=== PATIENT | male | born 1940 | race Caucasian/White ===

== ENCOUNTER 2019-12-16 15:42 | Inpatient (IN) | payer MEDICARE ==
[~2019-12-16] VITALS: Ht 172.7 cm; Wt 72.1 kg
[~2019-12-16 15:42] MED LIST: FOLI0.4T2 PO; LEVO75TA5 PO; LOVA40TA2 PO; METO50TA82 PO; QUET25TA7 PO; SERT25TA3 PO; [UNRECOGNIZED DRUG - OTHER]
--- NOTE | 2019-12-16 16:26 | NUR ---
ROTARY SURFACE GRINDER: PT TO ROOM FROM LOBBY VIA WHEELCHAIR
[2019-12-16 16:40] LABS: BASOPHILS # (AUTO) 0.02 x10^3/uL (0-0.1); BASOPHILS % (AUTO) 0 % (0-1); EOSINOPHILS % (AUTO) 0 % (1-7); LYMPHOCYTES # (AUTO) 0.42 x10^3/uL (1-3.4); LYMPHOCYTES % (AUTO) 8 % (22-44); MD NO; MEAN CORPUSCULAR HGB CONC 33.5 g/dL (33.2-36.2); MEAN CORPUSCULAR VOLUME 95.3 fL (81-97); MONOCYTES # (AUTO) 0.33 x10^3/uL (0.2-0.8); MONOCYTES % (AUTO) 6 % (2-9); NEUTROPHILS % (AUTO) 86 % (42-75); PLATELET COUNT 159 x10^3/uL (130-400); RED BLOOD COUNT 4.25 x10^6/uL (4.38-5.82); RED CELL DISTRIBUTION WIDTH 14.1 % (9.4-14.8)
[2019-12-16 16:53] LABS: ALANINE AMINOTRANSFERASE 29 U/L (12-78); ALBUMIN 3.8 g/dL (3.4-5.0); ANION GAP 8 mmol/L (5-15); CALCIUM 8.7 mg/dL (8.5-10.1); CHLORIDE 109 mmol/L (98-107); CREATININE 1.19 mg/dL (0.7-1.3)
[2019-12-16 16:57] LABS: ALKALINE PHOSPHATASE 82 U/L (45-117); BILIRUBIN,TOTAL 0.7 mg/dL (0.2-1.0); TOTAL PROTEIN 7.7 g/dL (6.4-8.2); TROPONIN I 0.085 ng/mL (0.000-0.045)
--- NOTE | 2019-12-16 17:05 | NUR ---
PT TO RM FROM IMAGING AT THIS TIME. PT MUTE. HX OF [place]. PT WITH JERKY MOTIONS, PULLING OFF EQUIPMENT. ERMD REQUST FOR SITTER FOR PT SAFTY. EKG UNABLE TO BE OBTAINED AT THIS TIME, D/T PT CONTSTANT JERKY MOVEMENTS. ALSO UNABLE TO ACHEIVE PIV. ORDER OBTAINED FOR GIBRAN AGRAWAL
[2019-12-16] MEDS ORDERED: ZIPRASIDONE 20 MG INJ IM ONE (18:00)
--- NOTE | 2019-12-16 18:09 | NUR ---
TWO ATTEMPTS AT IV ACCESS, PT JERKING AND MOVING, THIS RN ALMOST STUCK HERSELF. INFROMED ERMD, THIS RN WILL NOT ATTEMPT ANOTHER TIME FOR ACCESS. PT LIKELY WILL NEED MORE SEDATIVE. WILL ASK ANOTHER RN FOR HELP. PT STRAIGHT CATHED WITH HELP OF ANOTHER RN SPECIMEN SENT TO LAB.
[2019-12-16 18:17] LABS: MICROSCOPIC INDICATED
[2019-12-16 18:24] LABS: AMPHETAMINE SCREEN, URINE Negative (Negative); BARBITURATE SCREEN, URINE Negative (Negative); BENZODIAZEPINE SCREEN, URINE Negative (Negative); CANNABINOID SCREEN, URINE Negative (Negative); COCAINE SCREEN, URINE Negative (Negative); METHADONE SCREEN, URINE Negative (Negative); OPIATE SCREEN, URINE Negative (Negative)
[2019-12-16 18:37] LABS: CULTURE INDICATED? NO
[2019-12-16 18:59] LABS: RAPID INFLUENZA A Negative (Negative); RAPID INFLUENZA B Negative (Negative)
[2019-12-16] MEDS: NS + 20MEQ KCL 1,000 ML IV SCH (20:17)
[2019-12-16] MEDS ORDERED: POLYETHYLENE GLYCOL 17 GM PACKET PO PRN (20:30)
[2019-12-16] MEDS ORDERED: ACETAMINOPHEN 325 MG TABLET PO PRN (20:30)
[2019-12-16] MEDS ORDERED: LABETALOL 5MG/ML, 20ML IVPush PRN (20:30)
[2019-12-16] MEDS ORDERED: NITROGLYCERIN 0.4 MG BOTTLE (25 TABS) SL PRN (20:30)
[2019-12-16] MEDS ORDERED: BISACODYL 10 MG SUPP PR PRN (20:30)
[2019-12-16] MEDS ORDERED: ONDANSETRON 2MG/ML, 2ML IVPush PRN (20:30)
[2019-12-16] MEDS ORDERED: GUAIFENESIN/COD200MG-20MG/10ML LIQUID PO PRN (20:30)
[2019-12-16] MEDS ORDERED: ZOLPIDEM 5MG TABLET PO PRN (20:30)
[2019-12-16] MEDS ORDERED: HALOPERIDOL 5 MG/ML IVPush PRN (20:30)
--- NOTE | 2019-12-16 20:53 | NUR ---
PT PLACED ON HOSPITAL BED AWAITING TRANSFER TO FLOOR. PT RESTING COMFORTABLY. FAMILY AT BEDSIDE. MONITOR IN PLACE.
[2019-12-16] MEDS: LOVASTATIN 40 MG TABLET PO SCH (21:00)
[2019-12-16] MEDS ORDERED: QUETIAPINE 25MG TABLET ONE (21:02)
[2019-12-16] MEDS ORDERED: ENOXAPARIN 40 MG/0.4 ML ONE (21:02)
[2019-12-16] MEDS ORDERED: CEFTRIAXONE PMX 1GM/50ML 50 ML ONE (21:02)
[2019-12-16] MEDS ORDERED: FAMOTIDINE 20 MG TABLET ONE (21:02)
[2019-12-16] MEDS: ENOXAPARIN 40 MG/0.4 ML SQ SCH (21:16)
[2019-12-16] MEDS: CEFTRIAXONE PMX 1GM/50ML 50 ML IV SCH (21:17)
[2019-12-16] MEDS: QUETIAPINE 25MG TABLET PO SCH (21:17)
[2019-12-16] MEDS: FAMOTIDINE 20 MG TABLET PO SCH (21:18)
[2019-12-16 21:34] LABS: TROPONIN I 0.118 ng/mL (0.000-0.045)
[2019-12-16] MEDS ORDERED: LIDODERM 5% PATCH TD PRN (22:00)
--- NOTE | 2019-12-16 23:18 | NUR ---
PT RESTING COMFORTABLY. SITTER AT BEDSIDE FOR SAFETY. MONITOR IN PLACE.
--- NOTE | 2019-12-16 23:29 | NUR ---
Pt bedside report from Van mae. This rn to assume care of pt. community planning technician at bedside to watch pt. Pt attempted to pull out iv earlier and is not lucid per report and this men's furnishings salesperson.
--- NOTE | 2019-12-16 23:47 | NUR ---
Pt bedside report to Alicia mae.
[2019-12-17 05:01] LABS: TROPONIN I 0.198 ng/mL (0.000-0.045)
[2019-12-17 05:39] LABS: BASOPHILS # (AUTO) 0.01 x10^3/uL (0-0.1); BASOPHILS % (AUTO) 0 % (0-1); EOSINOPHILS % (AUTO) 0 % (1-7); LYMPHOCYTES # (AUTO) 0.64 x10^3/uL (1-3.4); LYMPHOCYTES % (AUTO) 11 % (22-44); MD NO; MEAN CORPUSCULAR HEMOGLOBIN 31.7 pg (27.5-34.5); MEAN CORPUSCULAR HGB CONC 33.4 g/dL (33.2-36.2); MEAN CORPUSCULAR VOLUME 95.1 fL (81-97); MEAN PLATELET VOLUME 9.1 fL (7.4-10.4); MONOCYTES # (AUTO) 0.49 x10^3/uL (0.2-0.8); MONOCYTES % (AUTO) 8 % (2-9); NEUTROPHILS # (AUTO) 4.79 x10^3/uL (1.8-6.8); NEUTROPHILS % (AUTO) 81 % (42-75); PLATELET COUNT 143 x10^3/uL (130-400); RED BLOOD COUNT 4.35 x10^6/uL (4.38-5.82); RED CELL DISTRIBUTION WIDTH 14.6 % (9.4-14.8)
[2019-12-17 05:49] LABS: ANION GAP 6 mmol/L (5-15); CALCIUM 8.2 mg/dL (8.5-10.1); CHLORIDE 111 mmol/L (98-107)
[2019-12-17 05:54] LABS: CHOL/HDL RATIO 2.5; CHOLESTEROL, TOTAL 141 mg/dL (140-239); CREATININE 1.19 mg/dL (0.7-1.3); HDL CHOL % 40 % (26-37); HDL CHOLESTEROL (DIRECT) 56 mg/dL (40-60); LDL CHOLESTEROL,CALCULATED 73 mg/dL (54-169); LDL/HDL RATIO 1.3 (0.5-3.0); TRIGLYCERIDES 60 mg/dL (50-200); VLDL CHOLESTEROL 12 mg/dL (0-25)
[2019-12-17] MEDS: LEVOTHYROXINE 75 MCG TABLET PO SCH (06:00)
[2019-12-17] MEDS: NS + 20MEQ KCL 1,000 ML IV SCH ×2 (06:17→21:05)
--- NOTE | 2019-12-17 07:23 | NUR ---
Report received from Alicia STEWART.
[2019-12-17] MEDS ORDERED: NS + 20MEQ KCL 1,000 ML IV ONE ×2 (08:21→20:59)
[2019-12-17 08:30] VITALS: BP 135/76
[2019-12-17] MEDS ORDERED: SERTRALINE PO SCH (09:00)
[2019-12-17] MEDS: FOLIC ACID 1 MG TABLET PO SCH (09:00)
[2019-12-17] MEDS ORDERED: CEFTRIAXONE PMX 1GM/50ML 50 ML ONE (11:10)
[2019-12-17] MEDS ORDERED: ASPIRIN 325 MG TABLET EC ONE (11:10)
[2019-12-17] MEDS ORDERED: FAMOTIDINE 20 MG TABLET ONE (11:10)
[2019-12-17] MEDS ORDERED: METOPROLOL TARTRATE 50 MG TAB ONE (11:11)
[2019-12-17] MEDS: CEFTRIAXONE PMX 1GM/50ML 50 ML IV SCH (11:12)
[2019-12-17] MEDS: ASPIRIN 325 MG TABLET EC PO SCH (11:13)
[2019-12-17] MEDS: FAMOTIDINE 20 MG TABLET PO SCH ×2 (11:13→21:00)
[2019-12-17] MEDS: METOPROLOL TARTRATE 50 MG TAB PO SCH (11:13)
--- NOTE | 2019-12-17 13:33 | NUR ---
pts at bedside. Compelted remaining assessment. Food tray requested
--- NOTE | 2019-12-17 16:58 | NUR ---
REPORT RECEIVED FROM JOSE CRUZ STEWART.
--- NOTE | 2019-12-17 17:31 | NUR ---
PT RESTING ON GURNEY W/ CALL LIGHT IN REACH. AT BEDSIDE. VS STABLE. RESPONDING TO WITH SHORT PHRASES LIKE "OKAY" "UH HUH". RESP EVEN AND UNLABORED. NADN. CONNECTED TO MONITORING.
[2019-12-17] MEDS ORDERED: RIVA3CAP4 PO (17:37)
[2019-12-17] MEDS ORDERED: MEMA10TA56 PO (17:39)
--- NOTE | 2019-12-17 18:54 | NUR ---
PT TRIGGERED BED ALARM AND FOUND SITTING UP AT BEDSIDE. EDUCATED ON NEED TO STAY IN BED. SIDERAILS UPX4, BED ALARM SET.
--- NOTE | 2019-12-17 19:07 | NUR ---
PT ATTEMPTED TO GET OUT OF BED AGAIN. FOUND SITTING UP AT BEDSIDE WITH BEDALARM GOING OFF. KRYSTAL CHANGED, GOWN CHANGED. PT REEDUCATED ON NEED TO STAY IN BED. SIDERAILS UP X4.
--- NOTE | 2019-12-17 19:40 | NUR ---
PT ATTEMPTING TO GET OUT OF BED. SIDE RAILS UPX4. BED ALARM SET.
--- NOTE | 2019-12-17 19:51 | NUR ---
PT ATTEMPTED TO GET OUT OF BED. SIDE RAILS UPX4. BED ALARM SET.
[2019-12-17] MEDS ORDERED: HALOPERIDOL 5 MG/ML ONE (20:33)
[2019-12-17] MEDS ORDERED: ENOXAPARIN 40 MG/0.4 ML ONE (20:59)
[2019-12-17] MEDS: LOVASTATIN 40 MG TABLET PO SCH (21:00)
[2019-12-17] MEDS: QUETIAPINE 25MG TABLET PO SCH (21:00)
[2019-12-17] MEDS ORDERED: LORazepam 2 MG/ML, 1ML IVPush ONE (21:00)
[2019-12-17] MEDS ORDERED: DILTIAZEM 5 MG/ML, 5ML ONE (21:15)
--- NOTE | 2019-12-17 21:20 | NUR ---
FLOAT RN: ATTEMPING TO GIVE LOVENOX. PT REMAINS VERY AGITATED AFTER HALDOL. PT 130S-150S AFIB ON MONITOR. UNABLE TO OBTAIN FULL VS S/T PT TOSSING AND TURNING IN BED. PT GRABBING AT STAFF AND KICKING LEGS UP. DISCUSSED WITH SNOW FERREIRA AND ORDER FOR 10MG CARDIZEM IVP FOR HR RECEIVED. NO FURTHER SEDATION TO BE GIVEN AT THIS TIME. SNOW WOULD LIKE TO MONITOR FOR HALDOL TO TAKE AFFECT.
[2019-12-17] MEDS ORDERED: DILTIAZEM 5 MG/ML, 5ML IVPush ONE (21:30)
--- NOTE | 2019-12-17 21:35 | NUR ---
JOHN RN: ATTEMPTING TO OBTAIN BP PRIOR TO GIVING CARDIZEM. PRIMARY RN AWARE. REPORT TO ZAIRE STEWART.
--- NOTE | 2019-12-17 21:39 | NUR ---
UNABLE TO GIVE LOVENOX DUE TO PTS RESTLESS BEHAVIOR. BREAK RN REPORTED SPEAKING W/ HOSPITALIST REGARDING PTS BEHAVIOR AND HR. JULES ASENCIO HOWEVER WE ARE UNABLE TO OBTAIN A BLOOD PRESSURE AT THIS TIME. WILL REASSESS POC. Addendum: 12/17/19 at 2141 by CBRUCIAGA UNABLE TO GIVE LOVENOX AND PO MEDS DUE TO PTS INCREASING TREMORS.
--- NOTE | 2019-12-17 21:40 | NUR ---
REPORT GIVEN TO IDANIA STEWART. PT IS READY FOR TRANSFER.
--- NOTE | 2019-12-17 22:17 | NUR ---
.MANUAL BP OBTAINED 118/80. CARDIZEM GIVEN.
[2019-12-17] MEDS ORDERED: LORazepam 2 MG/ML, 1ML ONE (22:54)
[2019-12-17] MEDS ORDERED: FUROSEMIDE 40 MG/4 ML IV ONE (23:00)
[2019-12-18] MEDS: CEFTRIAXONE PMX 1GM/50ML 50 ML IV SCH ×3 (00:17→20:05)
[2019-12-18] MEDS ORDERED: LORazepam 2 MG/ML, 1ML IVPush ONE (00:30)
[2019-12-18] MEDS: ENOXAPARIN 40 MG/0.4 ML SQ SCH ×2 (00:45→20:06)
[2019-12-18 00:46] LABS: ALBUMIN 3.3 g/dL (3.4-5.0); ANION GAP 10 mmol/L (5-15); CHLORIDE 113 mmol/L (98-107); CREATININE 1.23 mg/dL (0.7-1.3)
[2019-12-18 00:50] LABS: ALKALINE PHOSPHATASE 73 U/L (45-117); BASOPHILS # (AUTO) 0.03 x10^3/uL (0-0.1); BASOPHILS % (AUTO) 0 % (0-1); BILIRUBIN,TOTAL 0.5 mg/dL (0.2-1.0); EOSINOPHILS % (AUTO) 0 % (1-7); LYMPHOCYTES # (AUTO) 0.61 x10^3/uL (1-3.4); LYMPHOCYTES % (AUTO) 7 % (22-44); MD NO; MEAN CORPUSCULAR HEMOGLOBIN 31.9 pg (27.5-34.5); MEAN CORPUSCULAR HGB CONC 33.5 g/dL (33.2-36.2); MEAN CORPUSCULAR VOLUME 95.3 fL (81-97); MONOCYTES % (AUTO) 6 % (2-9); NEUTROPHILS # (AUTO) 7.21 x10^3/uL (1.8-6.8); NEUTROPHILS % (AUTO) 86 % (42-75); PLATELET COUNT 149 x10^3/uL (130-400); RED BLOOD COUNT 4.42 x10^6/uL (4.38-5.82); RED CELL DISTRIBUTION WIDTH 14.5 % (9.4-14.8); TOTAL PROTEIN 7.5 g/dL (6.4-8.2); TROPONIN I 0.145 ng/mL (0.000-0.045)
[2019-12-18 00:51] LABS: ALANINE AMINOTRANSFERASE 32 U/L (12-78)
[2019-12-18] MEDS ORDERED: ACETAMINOPHEN 650 MG SUPP ONE (01:16)
[2019-12-18] MEDS ORDERED: ACETAMINOPHEN 650 MG SUPP PR PRN (01:30)
[2019-12-18 04:30] VITALS: BP 145/65
[2019-12-18] MEDS: LEVOTHYROXINE 75 MCG TABLET PO SCH (04:45)
[2019-12-18] MEDS: ASPIRIN 325 MG TABLET EC PO SCH (04:46)
[2019-12-18 04:47] LABS: BASOPHILS # (AUTO) 0.02 x10^3/uL (0-0.1); BASOPHILS % (AUTO) 0 % (0-1); EOSINOPHILS % (AUTO) 0 % (1-7); LYMPHOCYTES # (AUTO) 0.97 x10^3/uL (1-3.4); LYMPHOCYTES % (AUTO) 13 % (22-44); MD NO; MEAN CORPUSCULAR HEMOGLOBIN 31.8 pg (27.5-34.5); MEAN CORPUSCULAR HGB CONC 33.3 g/dL (33.2-36.2); MEAN CORPUSCULAR VOLUME 95.3 fL (81-97); MEAN PLATELET VOLUME 9.3 fL (7.4-10.4); MONOCYTES # (AUTO) 0.44 x10^3/uL (0.2-0.8); MONOCYTES % (AUTO) 6 % (2-9); NEUTROPHILS % (AUTO) 81 % (42-75); PLATELET COUNT 127 x10^3/uL (130-400); RED BLOOD COUNT 4.46 x10^6/uL (4.38-5.82); RED CELL DISTRIBUTION WIDTH 14.6 % (9.4-14.8)
[2019-12-18 04:59] LABS: ANION GAP 8 mmol/L (5-15); CALCIUM 7.9 mg/dL (8.5-10.1); CHLORIDE 109 mmol/L (98-107)
[2019-12-18 05:00] LABS: CREATININE 1.21 mg/dL (0.7-1.3)
[2019-12-18] MEDS ORDERED: POTASSIUM CHLORIDE 20 MEQ in SODIUM CHLORIDE 0.9% 250 ML IV ONE (06:30)
[2019-12-18] MEDS: AZITHROMYCIN 500 MG in SODIUM CHLORIDE 0.9% 250 ML IV SCH (06:42)
--- NOTE | 2019-12-18 11:18 | NUR ---
REC: KAYKAY/ NTL -Up at 90 -Straws ok -1:1 assist -CRUSH meds Addendum: 12/18/19 at [address] Amended: Links added.
[2019-12-18] MEDS: FAMOTIDINE 20 MG TABLET PO SCH ×2 (11:29→20:05)
[2019-12-18] MEDS: METOPROLOL TARTRATE 50 MG TAB PO SCH (11:29)
[2019-12-18] MEDS: FOLIC ACID 1 MG TABLET PO SCH (11:29)
[2019-12-18] MEDS ORDERED: TAMSULOSIN 0.4 MG CAP.ER.24H PO SCH (14:30)
[2019-12-18] MEDS: hydrALAzine 20 MG/ML, 1ML IVPush PRN (14:40)
[2019-12-18] MEDS: QUETIAPINE 25MG TABLET PO SCH (20:05)
[2019-12-18] MEDS: POTASSIUM CHLORIDE 10% 20 MEQ/15 ML UDC PO SCH (20:05)
[2019-12-18] MEDS: LOVASTATIN 40 MG TABLET PO SCH (20:09)
[2019-12-19 02:30] VITALS: BP 159/95
[2019-12-19 04:43] LABS: ANION GAP 5 mmol/L (5-15); CALCIUM 8.2 mg/dL (8.5-10.1); CHLORIDE 113 mmol/L (98-107); CREATININE 1.07 mg/dL (0.7-1.3)
[2019-12-19 05:00] VITALS: BP 159/110
[2019-12-19] MEDS: LEVOTHYROXINE 75 MCG TABLET PO SCH (05:19)
[2019-12-19] MEDS: AZITHROMYCIN 500 MG in SODIUM CHLORIDE 0.9% 250 ML IV SCH (05:19)
[2019-12-19] MEDS: ASPIRIN 81 MG TABLET EC PO SCH (05:19)
[2019-12-19] MEDS: CEFTRIAXONE PMX 1GM/50ML 50 ML IV SCH ×2 (08:37→22:14)
[2019-12-19] MEDS: POTASSIUM CHLORIDE 10% 20 MEQ/15 ML UDC PO SCH (08:37)
[2019-12-19] MEDS: FOLIC ACID 1 MG TABLET PO SCH (08:38)
[2019-12-19] MEDS: METOPROLOL TARTRATE 50 MG TAB PO SCH (08:39)
[2019-12-19] MEDS ORDERED: FUROSEMIDE 20 MG/2 ML IV SCH (09:00)
[2019-12-19] MEDS ORDERED: HALOPERIDOL 5 MG/ML IM PRN (12:30)
--- NOTE | 2019-12-19 12:49 | NUR ---
REC: KAYKAY/ CHASE Crush Meds Strawamy ok Discharge recommendations to SNF with ongoing skilled GIRLS TENNIS COACH services Addendum: 12/19/19 at [address] Amended: Links added.
[2019-12-19 20:31] VITALS: BP 145/96
[2019-12-19] MEDS: LOVASTATIN 40 MG TABLET PO SCH (21:00)
[2019-12-20] MEDS: FAMOTIDINE 20 MG TABLET PO SCH ×2 (00:49→22:02)
[2019-12-20] MEDS: QUETIAPINE 25MG TABLET PO SCH ×2 (00:49→22:02)
[2019-12-20] MEDS: POTASSIUM CHLORIDE 10% 20 MEQ/15 ML UDC PO SCH ×3 (00:51→22:03)
[2019-12-20] MEDS: ENOXAPARIN 40 MG/0.4 ML SQ SCH ×2 (00:54→22:03)
[2019-12-20 00:57] VITALS: BP 181/122
[2019-12-20] MEDS: hydrALAzine 20 MG/ML, 1ML IVPush PRN (01:14)
[2019-12-20] MEDS: LEVOTHYROXINE 75 MCG TABLET PO SCH (06:08)
[2019-12-20] MEDS: ASPIRIN 81 MG TABLET EC PO SCH (06:08)
[2019-12-20 06:50] VITALS: BP 131/96
[2019-12-20] MEDS: AZITHROMYCIN 500 MG in SODIUM CHLORIDE 0.9% 250 ML IV SCH (07:02)
[2019-12-20] MEDS: CEFTRIAXONE PMX 1GM/50ML 50 ML IV SCH ×2 (08:39→22:03)
[2019-12-20] MEDS: FOLIC ACID 1 MG TABLET PO SCH (08:39)
[2019-12-20] MEDS: METOPROLOL TARTRATE 50 MG TAB PO SCH ×2 (08:40→22:03)
[2019-12-20] MEDS: FUROSEMIDE 40 MG TABLET PO SCH (08:40)
[2019-12-20] MEDS ORDERED: LISINOPRIL 10 MG TABLET PO SCH (09:00)
[2019-12-20 14:48] VITALS: BP 120/88
[2019-12-20 20:00] VITALS: BP 165/98
[2019-12-20] MEDS: LOVASTATIN 40 MG TABLET PO SCH (21:00)
[2019-12-21 03:11] VITALS: BP 137/95
[2019-12-21] MEDS: ASPIRIN 81 MG TABLET EC PO SCH (06:59)
[2019-12-21] MEDS: AZITHROMYCIN 500 MG in SODIUM CHLORIDE 0.9% 250 ML IV SCH (07:00)
[2019-12-21] MEDS: LEVOTHYROXINE 75 MCG TABLET PO SCH (07:00)
[2019-12-21 07:47] VITALS: BP 160/94
[2019-12-21] MEDS ORDERED: LISINOPRIL 10 MG TABLET PO SCH (09:00)
[2019-12-21 09:03] LABS: ANION GAP 4 mmol/L (5-15); BASOPHILS # (AUTO) 0.02 x10^3/uL (0-0.1); BASOPHILS % (AUTO) 0 % (0-1); CHLORIDE 112 mmol/L (98-107); CREATININE 0.99 mg/dL (0.7-1.3); EOSINOPHILS # (AUTO) 0.18 x10^3/uL (0-0.4); EOSINOPHILS % (AUTO) 3 % (1-7); LYMPHOCYTES # (AUTO) 1.82 x10^3/uL (1-3.4); LYMPHOCYTES % (AUTO) 31 % (22-44); MD NO; MEAN CORPUSCULAR HEMOGLOBIN 31.9 pg (27.5-34.5); MEAN CORPUSCULAR HGB CONC 33.6 g/dL (33.2-36.2); MEAN PLATELET VOLUME 9.3 fL (7.4-10.4); MONOCYTES # (AUTO) 0.46 x10^3/uL (0.2-0.8); MONOCYTES % (AUTO) 8 % (2-9); NEUTROPHILS # (AUTO) 3.37 x10^3/uL (1.8-6.8); NEUTROPHILS % (AUTO) 58 % (42-75); PLATELET COUNT 142 x10^3/uL (130-400); RED BLOOD COUNT 4.35 x10^6/uL (4.38-5.82); RED CELL DISTRIBUTION WIDTH 14.3 % (9.4-14.8)
[2019-12-21] MEDS: FOLIC ACID 1 MG TABLET PO SCH (09:18)
[2019-12-21] MEDS: POTASSIUM CHLORIDE 10% 20 MEQ/15 ML UDC PO SCH ×2 (09:18→23:37)
[2019-12-21] MEDS: METOPROLOL TARTRATE 50 MG TAB PO SCH ×2 (09:18→23:36)
[2019-12-21] MEDS: FUROSEMIDE 40 MG TABLET PO SCH (09:18)
[2019-12-21] MEDS: CEFTRIAXONE PMX 1GM/50ML 50 ML IV SCH ×2 (09:54→22:16)
[2019-12-21 13:20] VITALS: BP 141/89
[2019-12-21 19:35] VITALS: BP 154/104
[2019-12-21] MEDS: LOVASTATIN 40 MG TABLET PO SCH (21:00)
[2019-12-21] MEDS: QUETIAPINE 25MG TABLET PO SCH (23:35)
[2019-12-21] MEDS: FAMOTIDINE 20 MG TABLET PO SCH (23:35)
[2019-12-21] MEDS: LISINOPRIL 10 MG TABLET PO SCH (23:36)
[2019-12-21] MEDS: ENOXAPARIN 40 MG/0.4 ML SQ SCH (23:37)
[2019-12-22 00:19] VITALS: BP 120/76
[2019-12-22] MEDS: ASPIRIN 81 MG TABLET EC PO SCH (06:40)
[2019-12-22] MEDS: LEVOTHYROXINE 75 MCG TABLET PO SCH (06:41)
[2019-12-22] MEDS: AZITHROMYCIN 500 MG in SODIUM CHLORIDE 0.9% 250 ML IV SCH (06:41)
[2019-12-22] MEDS ORDERED: AMOX1TAB64 PO (09:40)
[2019-12-22] MEDS ORDERED: ASPI81TA45 PO (09:40)
[2019-12-22] MEDS ORDERED: METO50TA82 PO (09:40)
[2019-12-22] MEDS ORDERED: LISI-167 PO (09:40)
[2019-12-22 10:00] VITALS: BP 144/91
[2019-12-22] MEDS: FOLIC ACID 1 MG TABLET PO SCH (10:01)
[2019-12-22] MEDS: CEFTRIAXONE PMX 1GM/50ML 50 ML IV SCH (10:01)
[2019-12-22] MEDS: LISINOPRIL 10 MG TABLET PO SCH (10:02)
[2019-12-22] MEDS: FUROSEMIDE 40 MG TABLET PO SCH (10:02)
[2019-12-22] MEDS: METOPROLOL TARTRATE 50 MG TAB PO SCH (10:02)
[2019-12-22] MEDS: POTASSIUM CHLORIDE 10% 20 MEQ/15 ML UDC PO SCH (10:02)
[2019-12-22 14:20] VITALS: BP 123/80
[2019-12-22] MEDS ORDERED: POTA20TA6 PO (14:39)
[2019-12-22] MEDS ORDERED: FURO40TA6 PO (14:39)
[2019-12-22] MEDS ORDERED: LOVASTATIN 40 MG TABLET PO SCH (21:00)
== END 2019-12-22 17:02 | disposition home or self-care (01) | DRG 193 ==
LOC: ED 18:12 → EDIP 12-17 08:28 → 4EST 12-17 22:30 → CCU 12-17 23:30 → 3N 12-19 11:56
PROVIDERS: ADMIT Hospitalist; ATTEND Hospitalist
PROC: 0T9B70Z Drainage of Bladder with Drainage Device, Via Natural or Artificial Opening (ICD-10-PCS; principal; 2019-12-17)
DX: J18.9 Pneumonia, unspecified organism (principal); I21.A1 Myocardial infarction type 2; G93.41 Metabolic encephalopathy; J96.91 Respiratory failure, unspecified with hypoxia; G10 Huntington's disease; E03.9 Hypothyroidism, unspecified; F03.90 Unspecified dementia, unspecified severity, without behavioral disturbance, psychotic disturbance, mood disturbance, and anxiety; G47.00 Insomnia, unspecified; I08.1 Rheumatic disorders of both mitral and tricuspid valves; I12.9 Hypertensive chronic kidney disease with stage 1 through stage 4 chronic kidney disease, or unspecified chronic kidney disease; I25.10 Atherosclerotic heart disease of native coronary artery without angina pectoris; I48.91 Unspecified atrial fibrillation; I70.0 Atherosclerosis of aorta; N18.2 Chronic kidney disease, stage 2 (mild); Z79.82 Long term (current) use of aspirin; Z79.890 Hormone replacement therapy; Z79.899 Other long term (current) drug therapy; Z87.891 Personal history of nicotine dependence; Z91.81 History of falling; Z95.5 Presence of coronary angioplasty implant and graft; R33.9 Retention of urine, unspecified
CPT/HCPCS: 36415; 36600; 70450; 71045; 74230; 80048; 80053; 80061; 80307; 81001; 82140; 82803; 83036; 83605; 83735; 83880; 84439; 84443; 84484; 85025; 87040; 87081; 87400; 93005; 93306; G0378; J0456; J0696; J1650; J1940; J3480; J3486; J0360; J1630; J2060; J7050

== ENCOUNTER 2020-05-07 19:48 | Emergency (ER) | payer MEDICARE ==
[~2020-05-07] VITALS: Ht 170.2 cm; Wt 75.0 kg
[~2020-05-07 19:48] MED LIST changes: +AMOX1TAB64 PO; +ASPI81TA45 PO; +FURO40TA6 PO; +LISI-167 PO; +MEMA10TA56 PO; +POTA20TA6 PO; +RIVA3CAP15 PO
[2020-05-07 21:12] LABS: BASOPHILS # (AUTO) 0.04 x10^3/uL (0-0.1); BASOPHILS % (AUTO) 1 % (0-1); EOSINOPHILS % (AUTO) 3 % (1-7); LYMPHOCYTES # (AUTO) 0.94 x10^3/uL (1-3.4); LYMPHOCYTES % (AUTO) 12 % (22-44); MD NO; MEAN CORPUSCULAR HEMOGLOBIN 31.8 pg (27.5-34.5); MEAN CORPUSCULAR HGB CONC 32.8 g/dL (33.2-36.2); MEAN PLATELET VOLUME 8.9 fL (7.4-10.4); MONOCYTES # (AUTO) 0.42 x10^3/uL (0.2-0.8); MONOCYTES % (AUTO) 5 % (2-9); NEUTROPHILS # (AUTO) 6.18 x10^3/uL (1.8-6.8); NEUTROPHILS % (AUTO) 79 % (42-75); PLATELET COUNT 187 x10^3/uL (130-400); RED BLOOD COUNT 4.04 x10^6/uL (4.38-5.82); RED CELL DISTRIBUTION WIDTH 13.8 % (9.4-14.8)
[2020-05-07 21:15] VITALS: BP 127/74
[2020-05-07 21:24] LABS: ANION GAP 4 mmol/L (5-15); CALCIUM 8.5 mg/dL (8.5-10.1); CHLORIDE 112 mmol/L (98-107); CREATININE 1.06 mg/dL (0.7-1.3)
[2020-05-07 21:27] LABS: ALBUMIN 3.6 g/dL (3.4-5.0); TROPONIN I < 0.015 ng/mL (0.000-0.045)
== END 2020-05-07 22:19 | disposition home or self-care (01) ==
LOC: ED 20:48
DX: I48.91 Unspecified atrial fibrillation (principal); J20.8 Acute bronchitis due to other specified organisms; R94.31 Abnormal electrocardiogram [ECG] [EKG]; Z86.69 Personal history of other diseases of the nervous system and sense organs; I10 Essential (primary) hypertension; Z87.891 Personal history of nicotine dependence
CPT/HCPCS: 36415; 71045; 80048; 82040; 84484; 85025; 93005; 99285

== ENCOUNTER 2020-11-06 00:09 | Emergency (ER) | payer MEDICARE ==
[~2020-11-06] VITALS: Ht 170.2 cm; Wt 65.0 kg
[~2020-11-06 00:09] MED LIST changes: +DOXY100T PO; +LEVE500T53 PO
--- NOTE | 2020-11-06 00:20 | NUR ---
JOHN RN: REPORT GIVEN TO PAT HOFFMANN
[2020-11-06 01:25] LABS: BASOPHILS % (AUTO) 1 % (0-1); EOSINOPHILS % (AUTO) 1 % (1-7); LYMPHOCYTES % (AUTO) 10 % (22-44); MEAN CORPUSCULAR HEMOGLOBIN 31.7 pg (27.5-34.5); MEAN CORPUSCULAR HGB CONC 33.7 g/dL (33.2-36.2); MONOCYTES % (AUTO) 6 % (2-9); NEUTROPHILS % (AUTO) 83 % (42-75); PLATELET COUNT 181 x10^3/uL (130-400); RED BLOOD COUNT 3.87 x10^6/uL (4.38-5.82); RED CELL DISTRIBUTION WIDTH 15.3 % (9.4-14.8)
[2020-11-06 01:26] LABS: MD NO
[2020-11-06 01:50] LABS: MICROSCOPIC INDICATED
[2020-11-06 02:03] LABS: ALBUMIN 2.9 g/dL (3.4-5.0); ANION GAP 4 mmol/L (5-15); CALCIUM 8.2 mg/dL (8.5-10.1); CHLORIDE 108 mmol/L (98-107); CREATININE 1.35 mg/dL (0.7-1.3)
--- NOTE | 2020-11-06 02:06 | NUR ---
Covering primary for break. Pt in steven, NAD, RR equal and unlabored. Family at bedside. VS updated, family provided AIDET. Waiting for labs and re-eval/dispo.
[2020-11-06 03:55] VITALS: BP 141/100
--- NOTE | 2020-11-06 03:57 | NUR ---
pt resting in gurney, /poa got picked up by daughter and aware of d/c instructions and took everything home. pt awaiting remsa to pick him up, resp even/unlabored, vss.
== END 2020-11-06 04:25 | disposition home or self-care (01) ==
LOC: ED 00:39
DX: N39.0 Urinary tract infection, site not specified (principal); R31.9 Hematuria, unspecified; R31.0 Gross hematuria; I10 Essential (primary) hypertension; Z86.39 Personal history of other endocrine, nutritional and metabolic disease
CPT/HCPCS: 36415; 80048; 81001; 82040; 85025; 87086; 99284